=== PATIENT | male | born 1980 | race Caucasian/White ===

== ENCOUNTER 2019-05-24 06:02 | Emergency (ER) | payer SELFPAY, OTHER ==
[2019-05-24] MEDS: LORAZEPAM 1 MG TAB PO ×3 (06:29→22:00)
[2019-05-24] MEDS: OLANZAPINE (ODT) 5 MG TAB ODT (06:53)
[2019-05-24] MEDS: HALOPERIDOL 5 MG INJ IM (07:24)
[2019-05-24] MEDS: NITROFURANTOIN (SR) 100 MG CAP PO ×2 (14:08→21:08)
[2019-05-25] MEDS: MIRTAZAPINE 15 MG TAB PO ×2 (00:04)
[2019-05-25] MEDS: NITROFURANTOIN (SR) 100 MG CAP PO (08:36)
[2019-05-25] MEDS: LORAZEPAM 1 MG TAB PO ×2 (11:54→12:34)
== END 2019-05-25 13:17 ==
LOC: E/R 05-25 13:17
DX: F10.920 Alcohol use, unspecified with intoxication, uncomplicated (principal); N30.90 Cystitis, unspecified without hematuria; R45.851 Suicidal ideations; R40.2142 Coma scale, eyes open, spontaneous, at arrival to emergency department; R40.2252 Coma scale, best verbal response, oriented, at arrival to emergency department; R40.2362 Coma scale, best motor response, obeys commands, at arrival to emergency department
CPT/HCPCS: 80053; 80307; 81001; 85025; 96372; 99285-25